=== PATIENT | male | born 2000 | race Caucasian/White ===

== ENCOUNTER 2022-01-13 17:37 | Emergency (ER) | payer OTHER ==
[2022-01-13 18:45] VITALS: TEMP 98.2
[2022-01-13 18:48] LABS: Glucose,Whole Blood 93 mg/dL (75-99)
[2022-01-13] MEDS ORDERED: SODIUM CHLORIDE 0.9% 1,000 ML IV STA (20:38)
[2022-01-13 21:02] LABS: Basophils % (A) 0 %; Eosinophils # (A) 0.1 k/uL (0-0.7); Eosinophils % (A) 1 %; HGB 14.5 gm/dL (13.0-17.5); Lymphocytes # (A) 1.4 k/uL (1.0-4.8); Lymphocytes % (A) 15 %; MCH 30.2 pg (25.0-35.0); MCHC 34.5 g/dL (31.0-37.0); MCV 87.4 fL (80.0-100.0); Mean Platelet Volume 7.8; Monocytes # (A) 0.4 k/uL (0-1.0); Monocytes % (A) 4 %; Neutrophils # (A) 7.2 k/uL (1.3-7.7); Neutrophils % (A) 77 %; Platelet Count 228 k/uL (150-450); RDW 13.8 % (11.5-15.5); WBC 9.4 k/uL (4.0-11.0)
[2022-01-13 21:06] LABS: ALT 21 U/L (4-49); AST 24 U/L (17-59); African American GFR (CKD) >90 (>60 ml/min/1.73 sqM); Albumin 4.6 g/dL (3.5-5.0); Alkaline Phosphatase 42 U/L (38-126); Anion Gap 9 mmol/L; Blood Urea Nitrogen 15 mg/dL (9-20); Calcium 9.5 mg/dL (8.4-10.2); Carbon Dioxide 26 mmol/L (22-30); Chloride 104 mmol/L (98-107); Glucose 120 mg/dL (74-99); Non-African American GFR(CKD) >90 (>60 ml/min/1.73 sqM); Sodium 139 mmol/L (137-145); Total Bilirubin 0.6 mg/dL (0.2-1.3); Total Protein 7.2 g/dL (6.3-8.2)
--- NOTE | 2022-01-13 21:29 | XR ---
EXAMINATION TYPE: XR chest 2V DATE OF EXAM: 01/13/2022 COMPARISON: NONE HISTORY: Syncope TECHNIQUE: 2 views FINDINGS: Heart and mediastinum are normal. Lungs are clear. Diaphragm is normal. Bony thorax appears normal. IMPRESSION: Normal chest
--- NOTE | 2022-01-13 21:40 | ED ---
General Adult HPI - General Chief complaint: Syncope Stated complaint: Passed Out,Headache,[facility] Time Seen by Provider: 01/13/22 20:11 Source: patient, RN notes reviewed Mode of arrival: ambulatory Limitations: no limitations - History of Present Illness Initial comments: 21-year-old male presents to the emergency department for evaluation status post syncopal episode while at work this evening. 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 Patient is unsure if he hit his head, but did have a headache that has since resolved. States when he woke up his boss was still on the same phone call so he assumes his loss of consciousness was brief. Patient states he did have one episode of vomiting after this event. Denies feeling poorly or any recent illness prior. No fever, chills, blurry vision, dizziness, chest pain, shortness of breath, abdominal pain, diarrhea, dysuria, hematuria, or loss of mackenzei wel or bladder control. - Related Data Home Medications Medication Instructions Recorded Confirmed No Known Home Medications 01/13/22 01/13/22 Allergies Allergy/AdvReac Type Severity Reaction Status Date / Time No Known Allergies Allergy Verified 01/13/22 21:06 Review of Systems ROS Statement: Those systems with pertinent positive or pertinent negative responses have been documented in the HPI. ROS Other: All systems not noted in ROS Statement are negative. Past Medical History Past Medical History: No Reported History Past Surgical History: No Surgical Hx Reported Past Psychological History: No Psychological Hx Reported Smoking Status: Current every day smoker Past Alcohol Use History: None Reported Past Drug Use History: Marijuana General Exam Limitations: no limitations (Well-developed, well-nourished male in no acute distress. Initial temperature 98.2, pulse 65, respirations 18, blood pressure 105/62, pulse ox 100% on room air.) General appearance: alert, in no apparent distress Head exam: Present: atraumatic, normocephalic, normal inspection Eye exam: Present: normal appearance, PERRL, EOMI. Absent: scleral icterus, conjunctival injection, periorbital swelling ENT exam: Present: normal exam, normal oropharynx, mucous membranes moist, TM's normal bilaterally Neck exam: Present: normal inspection, full ROM. Absent: tenderness, meningismus, lymphadenopathy Respiratory exam: Present: normal lung sounds bilaterally. Absent: respiratory distress, wheezes, rales, rhonchi, stridor, chest wall tenderness Cardiovascular Exam: Present: regular rate, normal rhythm, normal heart sounds. Absent: systolic murmur, diastolic murmur, rubs, gallop, clicks GI/Abdominal exam: Present: soft, normal bowel sounds. Absent: distended, te nderness, guarding, rebound, rigid Back exam: Present: normal inspection. Absent: CVA tenderness (R), CVA tenderness (L), paraspinal tenderness, vertebral tenderness Neurological exam: Present: alert, oriented X3, CN II-XII intact, normal gait Psychiatric exam: Present: normal affect, normal mood Skin exam: Present: warm, dry, intact, normal color. Absent: rash Course Vital Signs 01/13/22 01/13/22 18:38 21:58 Temperature 98.2 F Pulse Rate 65 61 Respiratory 18 16 Rate Blood Pressure 105/62 120/67 O2 Sat by Pulse 100 98 Oximetry - Reevaluation(s) Reevaluation #1: 01/13/22 21:30 Patient resting comfortably at this time. Tolerating oral intake without difficulty. Denies headache or dizziness at this time. Vital signs stable. Medical Decision Making - Medical Decision Making This is a pleasant 21-year-old male with no significant past medical history who presents to the emergency department for evaluation status post syncopal episode. Upon exam, patient is well-appearing and in no acute distress. He has no focal neurological deficits. No injury sustained in fall. EKG shows normal sinus rhythm with no ectopy. CT of the brain is unremarkable. Chest x-ray is negative. Laboratory studies were reviewed with no significant findings. IV fluids given. Patient verbalizes feeling well. No etiology for syncopal epi sode determined. Discussed importance of follow-up care. Return parameters reviewed in detail. Patient verbalizes understanding and agrees with this plan. Attending: Yaneth. - Lab Data Result diagrams: 01/13/22 20:44 01/13/22 20:44 Lab Results 01/13/22 01/13/22 01/13/22 Range/Units 18:46 20:44 20:44 WBC 9.4 (4.0-11.0) k/uL RBC 4.80 (4.30-5.90) m/uL Hgb 14.5 (13.0-17.5) gm/dL Hct 42.0 (39.0-53.0) % MCV 87.4 (80.0-100.0) fL MCH 30.2 (25.0-35.0) pg MCHC 34.5 (31.0-37.0) g/dL RDW 13.8 (11.5-15.5) % Plt Count 228 (150-450) k/uL MPV 7.8 Neutrophils % 77 % Lymphocytes % 15 % Monocytes % 4 % Eosinophils % 1 % Basophils % 0 % Neutrophils # 7.2 (1.3-7.7) k/uL Lymphocytes # 1.4 (1.0-4.8) k/uL Monocytes # 0.4 (0-1.0) k/uL Eosinophils # 0.1 (0-0.7) k/uL Basophils # 0.0 (0-0.2) k/uL Sodium 139 (137-145) mmol/L Potassium 4.0 (3.5-5.1) mmol/L Chloride 104 (98-107) mmol/L Carbon Dioxide 26 (22-30) mmol/L Anion Gap 9 mmol/L BUN 15 (9-20) mg/dL Creatinine 0.71 (0.66-1.25) mg/dL Est GFR (CKD-EPI)AfAm >90 (>60 ml/min/1.73 sqM) Est GFR (CKD-EPI)NonAf >90 (>60 ml/min/1.73 sqM) Glucose 120 H (74-99) mg/dL POC Glucose (mg/dL) 93 (75-99) mg/dL POC Glu Billing Coordinator ID [facility] Calcium 9.5 (8.4-10.2) mg/dL Total Bilirubin 0.6 (0.2-1.3) mg/dL AST 24 (17-59) U/L ALT 21 (4-49) U/L Alkaline Phosphatase 42 (38-126) U/L Troponin I (0.000-0.034) ng/mL Total Protein 7.2 (6.3-8.2) g/dL Albumin 4.6 (3.5-5.0) g/dL Urine Color Urine Appearance (Clear) Urine pH (5.0-8.0) Ur Specific [place] (1.001-1.035) Urine Protein (Negative) Urine Glucose (UA) (Negative) Urine Ketones (Negative) Urine Blood (Negative) Urine Nitrite (Negative) Urine Bilirubin (Negative) Urine Urobilinogen (<2.0) mg/dL Ur Leukocyte Esterase (Negative) Urine WBC (0-5) /hpf Urine Mucus (None) /hpf 01/13/22 01/13/22 Range/Units 20:44 21:47 WBC (4.0-11.0) k/uL RBC (4.30-5.90) m/uL Hgb (13.0-17.5) gm/dL Hct (39.0-53.0) % MCV (80.0-100.0) fL MCH (25.0-35.0) pg MCHC (31.0-37.0) g/dL RDW (11.5-15.5) % Plt Count (150-450) k/uL MPV Neutrophils % % Lymphocytes % % Monocytes % % Eosinophils % % Basophils % % Neutrophils # (1.3-7.7) k/uL Lymphocytes # (1.0-4.8) k/uL Monocytes # (0-1.0) k/uL Eosinophils # (0-0.7) k/uL Basophils # (0-0.2) k/uL Sodium (137-145) mmol/L Potassium (3.5-5.1) mmol/L Chloride (98-107) mmol/L Carbon Dioxide (22-30) mmol/L Anion Gap mmol/L BUN (9-20) mg/dL Creatinine (0.66-1.25) mg/dL Est GFR (CKD-EPI)AfAm (>60 ml/min/1.73 sqM) Est GFR (CKD-EPI)NonAf (>60 ml/min/1.73 sqM) Glucose (74-99) mg/dL POC Glucose (mg/dL) (75-99) mg/dL POC Glu Billing Coordinator ID Calcium (8.4-10.2) mg/dL Total Bilirubin (0.2-1.3) mg/dL AST (17-59) U/L ALT (4-49) U/L Alkaline Phosphatase (38-126) U/L Troponin I <0.012 (0.000-0.034) ng/mL Total Protein (6.3-8.2) g/dL Albumin (3.5-5.0) g/dL Urine Color Yellow Urine Appearance Clear (Clear) Urine pH 6.5 (5.0-8.0) Ur Specific [place] 1.022 (1.001-1.035) Urine Protein 1+ H (Negative) Urine Glucose (UA) Negative (Negative) Urine Ketones Negative (Negative) Urine Blood Negative (Negative) Urine Nitrite Negative (Negative) Urine Bilirubin Negative (Negative) Urine Urobilinogen <2.0 (<2.0) mg/dL Ur Leukocyte Esterase Negative (Negative) Urine WBC <1 (0-5) /hpf Urine Mucus Moderate H (None) /hpf - EKG Data EKG shows normal: sinus rhythm Rate: normal EKG Comments: EKG obtained at 2016 shows sinus bradycardia. Ventricular rate 56, UT interval 167, QRS duration 90, QT/QTC 380/370. Possible right axis deviation. Possible right ventricular conduction delay. Moderate ST depression. Interpretation abnormal ECG. - Radiology Data Radiology results: report reviewed, image reviewed Two-view chest x-ray was obtained. Report was reviewed in its entirety. Impression per Dr. Sharpe is normal chest. CT of the brain without contrast was obtained. Report was reviewed in its entirety. Impression per Dr. Sharpe is negative unenhanced head CT. Disposition Clinical Impression: Syncope Disposition: HOME SELF-CARE Condition: Stable Instructions (If sedation given, give patient instructions): Syncope (ED) Additional Instructions: Increase fluids. Make position changes slowly. Follow up with PCP for a recheck in 1-2 days. Return to the emergency department with any new, worsening, or concerning symp toms. Is patient prescribed a controlled substance at d/c from ED?: No Referrals: None,Stated [Primary Care Provider] - 1-2 days Time of Disposition: 22:31
--- NOTE | 2022-01-13 21:40 | CT ---
EXAMINATION TYPE: CT brain wo con DATE OF EXAM: 01/13/2022 COMPARISON: None HISTORY: Syncope CT DLP: 1153.4 mGycm Automated exposure control for dose reduction was used. Images of the brain obtained without contrast. Ventricles have normal size. There is no mass effect or midline shift. There is no sign of intracrani al hemorrhage. Calvarium is intact. IMPRESSION: Negative unenhanced head CT scan.
[2022-01-13 21:58] VITALS: BP 120/67; PULSE 61; RESP 16
[2022-01-13 22:12] LABS: Appearance,Urine Clear (Clear); Bilirubin,Urine Negative (Negative); Blood,Urine Negative (Negative); Color,Urine Yellow; Glucose,Urine (UA) Negative (Negative); Ketones,Urine Negative (Negative); Leukocyte Esterase,Urine Negative (Negative); Mucus,Urine Moderate /hpf; Nitrite,Urine Negative (Negative); PH, Urine 6.5 (5.0-8.0); Protein,Urine 1+ (Negative); Specific Gravity,Urine 1.022 (1.001-1.035); Urobilinogen,Urine <2.0 mg/dL (<2.0); WBC,Urine <1 /hpf (0-5)
== END 2022-01-13 23:11 | disposition home or self-care (01) ==
LOC: EC 17:37
DX: R55 Syncope and collapse (principal); F17.200 Nicotine dependence, unspecified, uncomplicated; F12.90 Cannabis use, unspecified, uncomplicated
CPT/HCPCS: 36415; 70450; 71046; 80053; 81001; 84484; 85025; 93005; 96360; 99284

== ENCOUNTER 2024-10-12 21:19 | Emergency (ER) | payer BC ==
[2024-10-12 21:23] VITALS: BP 130/58; PULSE 104; RESP 20; TEMP 98.2
--- NOTE | 2024-10-12 21:34 | ED ---
Allergic Reaction HPI - General Chief complaint: Allergic Reaction Stated complaint: Reaction to Medication Time Seen by Provider: 10/12/24 21:26 Source: patient, RN notes reviewed Mode of arrival: ambulatory Limitations: no limitations - History of Present Illness Initial Comments: This is a 24-year-old male who presents to the emergency department for an allergic reaction. Patient had been experiencing URI symptoms and went to a clinic today. He was prescribed steroids and amoxicillin. He took the amoxicillin and about 30 minutes later broke out in an itchy rash on his legs. Denies any respiratory difficulties since taking the amoxicillin. He has never taken amoxicillin in the past. He was also given a prescription for steroids, but has not yet started this. He has not taken anything for his rash at this point. MD Complaint: allergic reaction, hives - Related Data Previous Rx's Medication Instructions Recorded Azithromycin [Zithromax] 250 mg PO DIRECTED 5 Days #6 tab 10/12/24 Famotidine 40 mg PO DAILY 5 Days #5 tablet 10/12/24 diphenhydrAMINE [Benadryl] 50 mg PO QID PRN #30 capsule 10/12/24 Allergies Allergy/AdvReac Type Severity Reaction Status Date / Time amoxicillin Allergy Rash/Hives Verified 10/12/24 21:23 Review of Systems ROS Statement: Those systems with pertinent positive or pertinent negative responses have been documented in the HPI. ROS Other: All systems not noted in ROS Statement are negative. Past Medical History Past Medical History: No Reported History History of Any Multi-Drug Resistant Organisms: None Reported Past Surgical History: No Surgical Hx Reported Past Psychological History: No Psychological Hx Reported Smoking Status: Current every day smoker Past Alcohol Use History: None Reported Past Drug Use History: Marijuana General Exam Limitations: no limitations General appearance: alert, in no apparent distress Head exam: Present: atraumatic, normocephalic, normal inspection Respiratory exam: Present: normal lung sounds bilaterally. Absent: respiratory distress, wheezes, rales, rhonchi, stridor Cardiovascular Exam: Present: regular rate, normal rhythm, normal heart sounds. Absent: systolic murmur, diastolic murmur, rubs, gallop, clicks Extremities exam: Present: other (Urticaria to the bilateral lower extremities.) Neurological exam: Present: alert, oriented X3, CN II-XII intact Psychiatric exam: Present: normal affect, normal mood Course Vital Signs 10/12/24 21:20 Temperature 98.2 F Pulse Rate 104 H Respiratory 20 Rate Blood Pressure 130/58 O2 Sat by Pulse 97 Oximetry Medical Decision Making - Medical Decision Making This is a 24-year-old male who presents to the emergency department for a rash on his legs and concern for an allergic reaction. Was pt. sent in by a medical professional or institution? @ -No Did you speak to anyone other than the patient for history? @ -No Did you review nursing and triage notes? @ -Yes, and I agree, it is accurate with regards to the patient's symptoms. Were old charts reviewed? @ -No Differential Diagnosis? @ -Roseola, measles, Lyme disease, erythema multiforme, cellulitis, toxic shock syndrome, Chris Robert syndrome, Kawasaki disease, melissa mountain spotted fever, contact dermatitis, allergic dermatitis, measles, mumps, rubella, varicella, meningococcal disease, drug reaction, coxsackievirus, This is not meant to be an all-inclusive list. EKG interpreted by me (3pts min.)? @ -Not obtained X-rays interpreted by me (1pt min.)? @ -Not obtained CT interpreted by me (1pt min.)? @ -Not obtained U/S interpreted by me (1pt. min.)? @ -Not obtained What testing was considered but not performed? (CT, X-rays, U/S, labs)? Why? @ -None What meds were considered but not given? Why? @ -None Did you discuss the management of the patient with other professionals? @ -No Did you reconcile home meds? @ -No Was smoking cessation discussed for >3mins.? @ -No Was critical care preformed (if so, how long)? @ -No Were there social determinants of health that impacted care today? How? (Homelessness, low income, unemployed, alcoholism, drug addiction, transportation, low edu. Level, literacy, decrease access to med. care, prison, rehab)? @ -No Was there de-escalation of care discussed even if they declined? (Discuss DNR or withdrawal of care, Hospice)? @ -No What co-morbidities impacted this encounter? (DM, HTN, Smoking, COPD, CAD, Cancer, CVA, Hep., AIDS, mental health diagnosis, sleep apnea, morbid obesity)? @ -None Was patient admitted / discharged? @ -Discharged. Physical examination consistent with urticaria on the bilateral lower extremities, likely induced by the amoxicillin. He was given IM Solu- Medrol, Benadryl, and oral famotidine. Triamcinolone cream provided to be used on the most bothersome areas. He was given a prescription for prednisone for his URI symptoms which I advised will also offer additional benefit to the rash. Prescription for azithromycin provided to be taken in place of the amoxicillin. Benadryl and famotidine prescribed as well for further management of the reaction. Patient discharged home in stable condition. Case discussed with ED attending Dr. Vinson. Return precautions reviewed in depth, the patient is instructed to return to the emergency department with any new, worsening, or concerning symptoms. Patient verbalized understanding. Undiagnosed new problem with uncertain prognosis? @ -None Drug Therapy requiring intensive monitoring for toxicity (Heparin, Nitro, Insulin, Cardizem)? @ -None Were any procedures done? @ -None Diagnosis/symptom? @ -Urticaria, drug reaction, respiratory illness Acute, or Chronic, or Acute on Chronic? @ -Acute Uncomplicated (without systemic symptoms) or Complicated (systemic symptoms)? @ -Uncomplicated Side effects of treatment? @ -None Exacerbation, Progression, or Severe Exacerbation] @ -Not applicable Poses a threat to life or bodily function? @ -No Disposition Clinical Impression: Allergic reaction, Urticaria, Respiratory illness Disposition: HOME SELF-CARE Instructions (If sedation given, give patient instructions): Urticaria (ED) Additional Instructions: Return to the emergency department with any new, worsening, or concerning symptoms. Stop taking the amoxicillin and begin taking the azithromycin as prescribed for 5 days. Begin taking the prednisone you are prescribed tomorrow. Take the famotidine daily for the next 5 days. Take the Benadryl every 6-8 hours as needed for itching. Apply the triamcinolone cream provided to the affected areas as needed for itching. Avoid applying this to the face. Prescriptions: diphenhydrAMINE [Benadryl] 50 mg PO QID PRN #30 capsule PRN Reason: Itching Famotidine 40 mg PO DAILY 5 Days #5 tablet Azithromycin [Zithromax] 250 mg PO DIRECTED 5 Days #6 tab Is patient prescribed a controlled substance at d/c from ED?: No Referrals: None,Stated [Primary Care Provider] - 1-2 days Time of Disposition: 21:47
[2024-10-12] MEDS: FAMOTIDINE 20 MG TAB PO STA (21:36)
[2024-10-12] MEDS: AZITHROMYCIN 500 MG TAB PO STA (21:36)
[2024-10-12] MEDS: diphenhydrAMINE 50 MG/ML 1 ML VIAL IM STA (21:37)
[2024-10-12] MEDS: methylPREDNISolone SOD SUCCI 125 MG/2 ML VIAL IM ONE (21:39)
[2024-10-12] MEDS: TRIAMCINOLONE ACET 0.5% CREAM 15 GM TUBE TOPICAL STA (21:59)
== END 2024-10-12 22:01 | disposition home or self-care (01) ==
LOC: EC 21:19
DX: L50.0 Allergic urticaria (principal); J98.9 Respiratory disorder, unspecified; F17.200 Nicotine dependence, unspecified, uncomplicated; Z88.0 Allergy status to penicillin
CPT/HCPCS: 99283; 96372; J1200; J2919

== ENCOUNTER → 2024-10-12 | Outpatient (CLI) | payer OTHER ==
--- NOTE | 2024-10-12 12:47 | XR ---
EXAMINATION TYPE: XR lumbar spine 2 or 3V DATE OF EXAM: 10/12/2024 12:39 PM COMPARISON: None. CLINICAL INDICATION: Male, 24 years old with history of S39.012D STRAIN OF MUSCLE FACIA AND TENDON, p ain TECHNIQUE: Frontal and lateral images of the lumbar spine are obtained. FINDINGS: There are 5 lumbar type vertebral bodies identified. There is a sacralized left L5 segment . Vertebral body heights are maintained. Soft tissues unremarkable as density projecting anterior to L5-S1 disc space on lateral view is not identified on frontal view. Mild disc space narrowing at L5-S 1 level. IMPRESSION: No acute fracture or dislocation is seen in the lumbar spine. [facility], , 10/12/2024 12:44 PM
== END | disposition home or self-care (01) ==
LOC: RADXRMAIN 12:25
PROVIDERS: ATTEND Emergency Medicine
DX: S39.012D Strain of muscle, fascia and tendon of lower back, subsequent encounter (principal)
CPT/HCPCS: 72100